=== PATIENT | male | born 2000 | race Caucasian/White ===

== ENCOUNTER 2021-01-19 20:05 | Emergency (ER) | payer OTHER ==
--- NOTE | 2021-01-19 21:04 | EDM.PDOC ---
ED HPI GENERAL MEDICAL PROBLEM - General Chief Complaint: Respiratory Problem Stated Complaint: CONGESTION, HEADACHE, SOETHROAT Time Seen by Provider: 01/19/21 20:15 Source of Information: Reports: Patient History Limitations: Reports: No Limitations - History of Present Illness INITIAL COMMENTS - FREE TEXT/NARRATIVE: Patient presented to the ED because of cough,cold,fever, chills, N/V/D x 1 days. He feels weak and fatigued. - Related Data Allergies Allergy/AdvReac Type Severity Reaction Status Date / Time No Known Allergies Allergy Verified 01/19/21 20:19 Home Meds: Home Meds Ibuprofen 800 mg PO Q8H PRN #30 tablet 01/19/21 [Rx] Multivitamin 1 each PO DAILY 01/19/21 [History] Past Medical History HEENT History: Reports: Hard of Hearing, Other (See Below) Other HEENT History: States hearing improved after ENT surgeries. - Past Surgical History HEENT Surgical History: Reports: Other (See Below) Other HEENT Surgeries/Procedures: Sinus surgery. Mastoidectomy X2. Cholesteatoma. ED ROS GENERAL - Review of Systems Review Of Systems: See Below Constitutional: Reports: Fever, Chills, Malaise, Weakness HEENT: Reports: No Symptoms Respiratory: Reports: No Symptoms Cardiovascular: Reports: No Symptoms Endocrine: Reports: No Symptoms GI/Abdominal: Reports: Diarrhea, Nausea, Vomiting : Reports: No Symptoms Musculoskeletal: Reports: No Symptoms Skin: Reports: No Symptoms Neurological: Reports: No Symptoms Psychiatric: Reports: No Symptoms ED EXAM, GENERAL - Physical Exam Exam: See Below Exam Limited By: No Limitations General Appearance: Alert, No Apparent Distress Eye Exam: Bilateral Eye: PERRL Ears: Normal External Exam, Normal Canal, Hearing Grossly Normal, Normal TMs Nose: Normal Inspection, Normal Mucosa, Nasal Drainage Throat/Mouth: Normal Inspection, Normal Lips, Normal Teeth, Normal Gums, Normal Oropharynx, Normal Voice, No Airway Compromise Head: Atraumatic, Normocephalic Neck: Normal Inspection, Supple, Non-Tender, Full Range of Motion Respiratory/Chest: No Respiratory Distress, Lungs Clear, Normal Breath Sounds, No Accessory Muscle Use, Chest Non-Tender Cardiovascular: Normal Peripheral Pulses, Regular Rate, Rhythm, No Edema, No Gallop, No JVD, No Murmur, No Rub GI/Abdominal: Normal Bowel Sounds, Soft, Non-Tender, No Organomegaly, No Distention, No Abnormal Bruit, No Mass Back Exam: Normal Inspection, Full Range of Motion Extremities: Normal Inspection, Normal Range of Motion, Non-Tender, No Pedal Edema, Normal Capillary Refill Neurological: Alert, Oriented, CN II-XII Intact, Normal Cognition, Normal Gait, Normal Reflexes, No Motor/Sensory Deficits Psychiatric: Normal Affect, Normal Mood Skin Exam: Warm, Intact, Normal Color, No Rash Course - Vital Signs Text/Narrative:: Covid and flu-negative Tylenol 1000 mg PO x1 Ibuprofen 800 mg PO x1 Lomotil 2 PO x1 Last Recorded V/S: Last Vital Signs Temp 37.6 C 01/19/21 20:10 Pulse 105 H 01/19/21 20:10 Resp 18 01/19/21 20:10 BP 141/71 H 01/19/21 20:10 Pulse Ox 96 01/19/21 20:10 - Orders/Labs/Meds Orders: Active Orders 24 hr Category Date Time Status Isolation [COMM] Routine Oth 01/19/21 21:26 Ordered Labs: Laboratory Tests 01/19/21 Range/Units 21:30 SARS-CoV-2 RNA (CESAR) Negative (NEGATIVE) Meds: Medications Discontinued Medications Generic Name Dose Route Start Last Admin Trade Name Freq PRN Reason Stop Dose Admin Acetaminophen 1,000 mg 01/19/21 21:12 01/19/21 21:40 Acetaminophen 500 Mg Tab PO 01/19/21 21:13 1,000 mg ONETIME ONE Administration Ibuprofen 800 mg 01/19/21 21:12 01/19/21 21:40 Ibuprofen 800 Mg Tab PO 01/19/21 21:13 800 mg ONETIME ONE Administration Loperamide HCl 4 mg 01/19/21 21:12 01/19/21 21:40 Loperamide 2 Mg Cap PO 01/19/21 21:13 4 mg NOW STA Administration Departure - Departure Time of Disposition: 21:30 Disposition: Home, Self-Care 01 Condition: Good Clinical Impression: URI (upper respiratory infection), Gastroenteritis - Discharge Information Prescriptions: Ibuprofen 800 mg PO Q8H PRN #30 tablet PRN Reason: Pain Instructions: Viral Gastroenteritis, Adult, [id number], Upper Respiratory Infection, Adult, [id number] Referrals: PCP,Unknown [Primary Care Provider] - Forms: ED Department Discharge Additional Instructions: Please read discharge instructions on URI-viral and viral gastroenteritis Frequent hand washing Drink at least 2-3 liters of water daily Ibuprofen 800 mg with tylenol 1000 mg every 8 hours as needed for pain Imodium(OVER THE COUNTER) 2 tablets every 6 hours as needed for diarrhea Follow up as needed - My Orders Last 24 Hours: My Active Orders 01/19/21 21:26 Isolation [COMM] Routine - Assessment/Plan Last 24 Hours: My Active Orders 01/19/21 21:26 Isolation [COMM] Routine
[2021-01-19] MEDS ORDERED: Acetaminophen 500 MG Tab PO ONE (21:12)
[2021-01-19] MEDS ORDERED: Ibuprofen 800 MG Tab PO ONE (21:12)
[2021-01-19] MEDS ORDERED: Loperamide 2 MG Cap PO STA (21:12)
== END 2021-01-19 21:50 | disposition home or self-care (01) ==
LOC: FB.ED 20:05
DX: J06.9 Acute upper respiratory infection, unspecified (principal); K52.9 Noninfective gastroenteritis and colitis, unspecified; Z20.822 Contact with and (suspected) exposure to COVID-19
CPT/HCPCS: 87635; 87804; 99283; A9270; U0002